=== PATIENT | female | born 1990 | race Two or more races ===

== ENCOUNTER 2024-05-17 16:07 | Inpatient (IN) | payer OTHER ==
[~2024-05-17] VITALS: Ht 157.5 cm; Wt 91.0 kg
[2024-05-17 16:45] LABS: Basophils # (auto) 0 10 ^3/uL (0-0.2); Basophils % (auto) 0.5 % (0.0-2.0); Eosinophils # (auto) 0.1 10 ^3/uL (0-0.8); Eosinophils % (auto) 1.6 % (0.0-7.0); Hematocrit 36.6 % (36.0-46.0); Hemoglobin 11.3 g/dL (12.2-16.2); Lymphocytes # (auto) 1.5 10 ^3/uL (0.4-5.4); Lymphocytes % (auto) 24.7 % (10.0-50.0); Mean Corpuscular Hemoglobin 21.3 pg (28.0-32.0); Mean Corpuscular Hgb Conc. 30.8 g/dL (32.0-36.0); Mean Corpuscular Volume 69.1 fL (80.0-100.0); Monocytes # (auto) 0.5 10 ^3/uL (0-1.3); Monocytes % (auto) 7.5 % (0.0-12.0); Neutrophils # (auto) 4.1 10 ^3/uL (1.6-8.6); Neutrophils % (auto) 65.7 % (37.0-80.0); Platelet Count (auto) 360 10^3/uL (140-450); Red Cell Distribution Width 18.6 % (11.8-14.3); White Blood Cell 6.2 10^3/uL (4.4-10.8)
[2024-05-17 16:58] LABS: Alanine Aminotransferase 50 U/L (7-40); Alkaline Phosphatase 86 U/L (46-116); Anion Gap 8 (5-15); Aspartate Aminotransferase 18 U/L (13-40); BUN/Creatinine Ratio 13.1 (10.0-20.0); Blood Urea Nitrogen 11 mg/dL (9-23); Calcium 10.4 mg/dL (8.7-10.4); Carbon Dioxide 25 mmol/L (20-31); Chloride 107 mmol/L (98-107); Glucose 103 mg/dL (74-106); Potassium 3.8 mmol/L (3.5-5.1); Sodium 140 mmol/L (136-145)
[2024-05-17 16:59] LABS: Bilirubin, Total 0.5 mg/dL (0.2-1.0); Total Protein 7.9 g/dL (5.7-8.2)
[2024-05-17 17:05] LABS: INR 1.02 (0.9-1.15); Partial Thromboplastin Time 27.4 SEC (24.5-34.5); Prothrombin Time 10.8 sec (9.3-11.8)
[2024-05-17 19:50] LABS: Urine Bacteria None Seen /hpf (None Seen)
[2024-05-17 21:10] LABS: Urine Blood 3+ /uL (Negative); Urine Clarity Ex.Turbid (Clear); Urine Color Light-Red (Yellow); Urine Mucus FEW (None Seen); Urine Protein, UAD 2+ (Negative); Urine Specific Gravity 1.031 (1.001-1.035); Urine Urobilinogen Normal (Negative); Urine WBC 432 /hpf (0 - 5); Urine WBC Clumps PRESENT /hpf (None Seen); Urine pH 5.5 (5.0-9.0)
[2024-05-17] MEDS ORDERED: ACETAMINOPHEN 500 MG TAB PO PRN (22:00)
[2024-05-17] MEDS ORDERED: MORPHINE SULFATE INJ 2 MG/ml SYRG IV PRN (22:00)
[2024-05-17] MEDS: ATORVASTATIN 20 MG TAB PO ONE (22:45)
[2024-05-17 22:49] LABS: Amphetamine Screen, Urine Neg (NEGATIVE); Barbiturate Scree,Urine Neg (NEGATIVE); Benzodiazephine Screen, Urine Neg (NEGATIVE)
[2024-05-17 22:50] LABS: Cannabinoid Screen, Urine Pos (NEGATIVE); Cocaine Screen, Urine Neg (NEGATIVE); Opiate Scree,Urine Neg (NEGATIVE); Phencyclidine Screen, Urine Neg (NEGATIVE)
[2024-05-18] MEDS: PANTOPRAZOLE 40 MG TAB PO ONE (00:17)
[2024-05-18] MEDS ORDERED: ONDANSETRON HCL 4 MG/2 ML VIAL IV PRN ×2 (00:30→14:30)
[2024-05-18 00:37] LABS: Erythrocyte Sedimentation Rate 7 mm/hr (0-20)
[2024-05-18] MEDS: cefTRIAXone 1GM/50ML D5W 50 ML IV SCH (01:00)
[2024-05-18 02:30] LABS: % Iron Saturation 6.4 % (15-50)
[2024-05-18] MEDS: MELATONIN 5 MG TAB PO ONE (05:26)
[2024-05-18 07:28] LABS: Basophils # (auto) 0 10 ^3/uL (0-0.2); Eosinophils # (auto) 0.1 10 ^3/uL (0-0.8); Lymphocytes # (auto) 1.9 10 ^3/uL (0.4-5.4); Monocytes # (auto) 0.6 10 ^3/uL (0-1.3)
[2024-05-18 07:30] LABS: Chloride 107 mmol/L (98-107); Potassium 3.7 mmol/L (3.5-5.1); Sodium 137 mmol/L (136-145)
[2024-05-18 07:31] LABS: Anion Gap 8 (5-15); Carbon Dioxide 22 mmol/L (20-31)
[2024-05-18 07:32] LABS: Basophils % (auto) 0.5 % (0.0-2.0); Eosinophils % (auto) 2.5 % (0.0-7.0); Hematocrit 34.5 % (36.0-46.0); Hemoglobin 10.7 g/dL (12.2-16.2); Lymphocytes % (auto) 33.4 % (10.0-50.0); Mean Corpuscular Hemoglobin 21.7 pg (28.0-32.0); Mean Corpuscular Volume 69.8 fL (80.0-100.0); Monocytes % (auto) 10.2 % (0.0-12.0); Neutrophils # (auto) 3.1 10 ^3/uL (1.6-8.6); Neutrophils % (auto) 53.4 % (37.0-80.0); Nucleated Red Blood Cells % 0.2 %; Platelet Count (auto) 327 10^3/uL (140-450); Red Blood Cells 4.93 10^6/uL (4.0-5.20); Red Cell Distribution Width 18.2 % (11.8-14.3); White Blood Cell 5.8 10^3/uL (4.4-10.8)
[2024-05-18 07:37] LABS: BUN/Creatinine Ratio 12.3 (10.0-20.0); Blood Urea Nitrogen 9 mg/dL (9-23); Glucose 99 mg/dL (74-106)
[2024-05-18] MEDS: FERROUS SULFATE 325mg EC TAB PO SCH ×2 (08:00→10:00)
[2024-05-18 08:30] VITALS: PULSE 57; RESP 18
[2024-05-18] MEDS: SODIUM CHLORIDE 0.9% 1,000 ML IV ONE (10:00)
[2024-05-18] MEDS: LORazepam 2MG/ML-1ML VIAL IV PRN (13:52)
[2024-05-18] MEDS: ERGOCALCIFEROL 50,000 UNIT(1.25MG) CAP PO SCH (13:52)
[2024-05-18] MEDS: PANTOPRAZOLE 40 MG/10 ML VIAL INJ IV ONE (16:35)
[2024-05-18 21:32] VITALS: BP 117/70; PULSE 89; RESP 20; TEMP 98.1; O2SAT 97
[2024-05-19] MEDS ORDERED: PANTOPRAZOLE 40 MG/10 ML VIAL INJ IV SCH (10:00)
[2024-05-20 13:06] LABS: Anti-Nuclear Antibody Direct Negative (Negative)
== END 2024-05-18 21:32 | disposition left against medical advice (07) | DRG 203 ==
LOC: ER 16:07 → TELE 22:04
PROVIDERS: ADMIT Internal Medicine; ATTEND Internal Medicine
DX: M94.0 Chondrocostal junction syndrome [Tietze] (principal); N30.01 Acute cystitis with hematuria; D50.9 Iron deficiency anemia, unspecified; K21.9 Gastro-esophageal reflux disease without esophagitis; E78.5 Hyperlipidemia, unspecified; Z53.29 Procedure and treatment not carried out because of patient's decision for other reasons; N93.8 Other specified abnormal uterine and vaginal bleeding; E55.9 Vitamin D deficiency, unspecified; N80.9 Endometriosis, unspecified; N92.6 Irregular menstruation, unspecified; E66.01 Morbid (severe) obesity due to excess calories; Z68.36 Body mass index [BMI] 36.0-36.9, adult; Z79.899 Other long term (current) drug therapy
CPT/HCPCS: 36415; 71045; 76856; 80048; 80053; 80307; 80320; 81001; 81025; 82306; 82607; 83036; 83540; 83550; 83880; 84443; 84484; 85025; 85610; 85652; 85730; 86038; 86141; 87086; 93005; 93306; G0378; J2470